=== PATIENT | male | born 1950 | race Caucasian/White ===

== ENCOUNTER 2018-04-24 16:46 | Emergency (ER) | payer MEDICARE ==
[~2018-04-24] VITALS: Ht 180.3 cm; Wt 100.0 kg
[~2018-04-24 16:46] MED LIST: ADVAIR DISK2 IN; ADVAIR DISK2 INH; ADVAIR DISKU IN; ALBUTERO1 IN; AMBIEN10 MG PO; AMOXICILLIN500 MG OR; BENAZEPRIL10 MG OR; BENAZEPRIL10 MG PO; CEPHALEXIN500 MG PO; CHANTIX OR; CHANTIX STARTIN0.5 & OR; COMBIVENT IN; DALIRESP500 MCG PO; DUONEB IN; E400400 UNIT OR; EFFEXOR XR75 MG PO; EFFEXOR25 MG OR; FIORICET PO; FISH OIL1000 M1 PO; FLAX OIL OR; FLUOCINONIDE0.051 EX; FLURBIPROFEN100 MG PO; GREEN OR; KEFLEX500 M1 PO; KLONOPIN0.5 MG PO; LASIX 20 MG20 MG/TAB PO; LEVAQUIN750 MG PO; LEVOXYL50 MCG PO; LEXAPRO10 MG OR; LEXAPRO20 MG PO; LIPITOR20 MG OR; LIPITOR20 MG PO; LORTAB 10 OR; LOTENSIN HCT1 TA2 PO; LUNESTA2 M2 PO; LUNESTA3 MG PO; MEDDOSEPAK OR; MEDDOSEPAK PO; METHOCARBAMOL500 MG PO; MULT VITAMI1 PO; NASONEX50 MCG/AC; NO MEDS; PREDNISODT10 PO; PROAIR HFA IN; PROVENTIL0.083 % IN; PULMICORT180 MCG IN; RISPERDAL1 MG PO; RISPERIDONE0.5 MG PO; SOMA CPD OR; TIZANIDINE4 MG PO; TRAMADOL HCL50 MG OR; TRILEPTAL600 M1 PO; ULTRAM50 M1 PO; VENTOLIN HFA IN; VITAMIN B CO PO; ZANAFLEX4 M2 OR; ZANAFLEX4 MG PO; ZOLPIDEM10 MG PO; ZPAK OR; ZPAK PO; [UNRECOGNIZED DRUG - CODE] OR; [UNRECOGNIZED DRUG - OTHER] IV
[2018-04-24 18:00] LABS: HEMATOCRIT 41.3 % (39.0-50.0); HEMOGLOBIN 13.8 g/dl (14.0-18.0); MEAN CELL VOLUME 95.4 fL CALC (80.0-100.0); MEAN CORPUSCULAR HGB 31.9 pG CALC (26.0-32.0); MEAN CORPUSCULAR HGB CONC 33.4 g/L CALC (32.0-36.0); NEUT# 21.74 thou/uL (1.82-7.42); RED BLOOD COUNT 4.33 mill/uL (4.70-6.10); RED CELL DISTRI WIDTH 14.8 % (11.5-15.5)
[2018-04-24 18:15] LABS: ALBUMIN 3.9 g/dL (3.2-5.0); ALKALINE PHOSPHATASE 81 u/l (38-126); BILIRUBIN, TOTAL 0.6 mg/dL (0.0-1.4); BUN 15 mg/dL (8-23); BUN/CREATININE RATIO 17 (12-20 (CALC)); CARBON DIOXIDE 23 mmol/l (22-30); CHLORIDE 97 mmol/l (95-108); CREATININE 0.9 mg/dL (0.7-1.3); GFR > 60 ML/MIN (>=60 (CALC)); GFR FOR AFR.AMER. > 60 ML/MIN (>=60 (CALC)); SGOT/AST 30 u/l (19-48); SGPT/ALT 48 u/l (11-66); TOTAL PROTEIN 6.9 g/dL (6.3-8.2)
[2018-04-24 18:18] LABS: ANION GAP 16 (6-22 (CALC)); POTASSIUM 4.8 mmol/l (3.5-5.1); SODIUM 131 mmol/l (137-146)
[2018-04-24 18:26] LABS: MYOGLOBIN 38 ng/mL (0 - 121)
[2018-04-24] MEDS ORDERED: DOXYCYCL HYC100 MG PO (19:08)
[2018-04-24] MEDS ORDERED: PREDNISONE10 MG PO (19:08)
[2018-04-24 19:15] VITALS: BP 106/70
== END 2018-04-24 19:15 | disposition home or self-care (01) ==
LOC: ED 16:46
PROVIDERS: Emergency Medicine
DX: J44.1 Chronic obstructive pulmonary disease with (acute) exacerbation (principal); J44.0 Chronic obstructive pulmonary disease with (acute) lower respiratory infection; J20.9 Acute bronchitis, unspecified; I10 Essential (primary) hypertension; R06.02 Shortness of breath
CPT/HCPCS: J3475

== ENCOUNTER 2018-12-20 20:43 | Emergency (ER) | payer MEDICARE ==
[~2018-12-20] VITALS: Ht 180.3 cm; Wt 110.0 kg
[~2018-12-20 20:43] MED LIST changes: +DOXYCYCL HYC100 MG PO; +PREDNISONE10 MG PO
[2018-12-20 21:43] VITALS: BP 119/92
== END 2018-12-20 21:49 | disposition home or self-care (01) ==
LOC: ED 20:43
PROC: 0HQDXZZ Repair Right Lower Arm Skin, External Approach (ICD-10-PCS; principal; 2018-12-20)
DX: S51.811A Laceration without foreign body of right forearm, initial encounter (principal); I10 Essential (primary) hypertension; J44.9 Chronic obstructive pulmonary disease, unspecified; M19.90 Unspecified osteoarthritis, unspecified site; W01.110A Fall on same level from slipping, tripping and stumbling with subsequent striking against sharp glass, initial encounter; Y92.009 Unspecified place in unspecified non-institutional (private) residence as the place of occurrence of the external cause

== ENCOUNTER 2018-12-30 07:53 | Emergency (ER) | payer MEDICARE ==
[~2018-12-30] VITALS: Ht 180.3 cm; Wt 100.0 kg
[2018-12-30 08:10] VITALS: BP 139/80
== END 2018-12-30 08:10 | disposition home or self-care (01) ==
LOC: ED 07:53
DX: S51.811D Laceration without foreign body of right forearm, subsequent encounter (principal); X58.XXXD Exposure to other specified factors, subsequent encounter; M19.90 Unspecified osteoarthritis, unspecified site; I10 Essential (primary) hypertension; J44.9 Chronic obstructive pulmonary disease, unspecified

== ENCOUNTER 2021-06-26 09:01 | Emergency (ER) | payer MEDICARE ==
[2021-06-26 10:01] LABS: IMMATURE GRANULOCYTES 0.2 % (0.0-5.0); MEAN CORPUSCULAR HGB 27.3 pG CALC (26.0-32.0); MEAN CORPUSCULAR HGB CONC 31.4 g/dL CAL (32.0-36.0); NEUT# 3.74 thou/uL (1.82-7.42); RED BLOOD COUNT 2.38 mill/uL (4.70-6.10); RED CELL DISTRI WIDTH 16.6 % (11.5-15.5)
[2021-06-26 10:11] LABS: ALBUMIN 3.8 g/dL (3.2-5.0); ALKALINE PHOSPHATASE 96 u/l (38-126); BUN 5 mg/dL (8-23); BUN/CREATININE RATIO 7 (12-20 (CALC)); CARBON DIOXIDE 27 mmol/l (22-30); CHLORIDE 97 mmol/l (95-108); CREATININE 0.7 mg/dL (0.7-1.3); GFR > 60 ML/MIN (>=60 (CALC)); GFR FOR AFR.AMER. > 60 ML/MIN (>=60 (CALC)); SGOT/AST 41 u/l (19-48); SODIUM 130 mmol/l (137-146); TOTAL PROTEIN 7.6 g/dL (6.3-8.2)
[2021-06-26 10:14] LABS: HEMATOCRIT 20.7 % (39.0-50.0); HEMOGLOBIN 6.5 g/dl (14.0-18.0)
[2021-06-26 10:15] LABS: ANION GAP 10 (6-22 (CALC)); BILIRUBIN, TOTAL 0.1 mg/dL (0.0-1.4); POTASSIUM 3.5 mmol/l (3.5-5.1)
[2021-06-26 10:22] LABS: PROTHROMBIN TIME 10.5 SECONDS (9.0-12.5)
[2021-06-26 10:36] LABS: URINE BILIRUBIN - DIPSTICK NEGATIVE (NEGATIVE); URINE BLOOD DIPSTICK NEGATIVE (NEGATIVE); URINE COLOR YELLOW; URINE GLUCOSE - DIPSTICK NEGATIVE (NEGATIVE); URINE KETONE NEGATIVE (NEGATIVE); URINE LEUK ESTERASE NEGATIVE (NEGATIVE); URINE PROTEIN - DIPSTICK NEGATIVE (NEG-TRACE); URINE SPECIFIC GRAVITY <=1.005; URINE UROBILINOGEN - DIPSTICK 0.2 E.U./dL (0.2)
[2021-06-26 10:37] LABS: URINE NITRITE - DIPSTICK NEGATIVE (Negative)
[2021-06-26 11:26] VITALS: BP 120/72
[2021-06-26 11:45] VITALS: BP 124/78
[2021-06-26 13:30] VITALS: BP 139/69
[2021-06-26 23:23] VITALS: BP 139/69
== END 2021-06-26 15:35 | disposition home or self-care (01) ==
LOC: ED 09:01
PROVIDERS: Family Medicine
PROC: 30233N1 Transfusion of Nonautologous Red Blood Cells into Peripheral Vein, Percutaneous Approach (ICD-10-PCS; principal; 2021-06-26)
DX: D64.9 Anemia, unspecified (principal); I10 Essential (primary) hypertension; J44.9 Chronic obstructive pulmonary disease, unspecified
CPT/HCPCS: P9016

== ENCOUNTER 2021-11-10 14:11 | Emergency (ER) | payer MEDICARE ==
[~2021-11-10] VITALS: Ht 180.3 cm; Wt 110.0 kg
[2021-11-10 14:11] VITALS: BP 190/100
[2021-11-10 14:59] LABS: IMMATURE GRANULOCYTES 0.4 % (0.0-5.0); MEAN CORPUSCULAR HGB 26.4 pG CALC (26.0-32.0); MEAN CORPUSCULAR HGB CONC 29.7 g/dL CAL (32.0-36.0); NEUT# 4.16 thou/uL (1.82-7.42); RED BLOOD COUNT 3.63 mill/uL (4.70-6.10); RED CELL DISTRI WIDTH 19.5 % (11.5-15.5)
[2021-11-10 15:00] LABS: HEMATOCRIT 32.3 % (39.0-50.0); HEMOGLOBIN 9.6 g/dl (14.0-18.0)
[2021-11-10 15:17] LABS: ALKALINE PHOSPHATASE 107 u/l (38-126); ANION GAP 11 (6-22 (CALC)); BUN 7 mg/dL (8-23); BUN/CREATININE RATIO 11 (12-20 (CALC)); CARBON DIOXIDE 25 mmol/l (22-30); CHLORIDE 95 mmol/l (95-108); CREATININE 0.7 mg/dL (0.7-1.3); GFR > 60 ML/MIN (>=60 (CALC)); GFR FOR AFR.AMER. > 60 ML/MIN (>=60 (CALC)); POTASSIUM 3.9 mmol/l (3.5-5.1); SGOT/AST 34 u/l (19-48); SODIUM 127 mmol/l (137-146); TOTAL PROTEIN 7.7 g/dL (6.3-8.2)
[2021-11-10 15:19] LABS: BILIRUBIN, TOTAL 0.4 mg/dL (0.0-1.4)
== END 2021-11-10 15:49 | disposition left against medical advice (07) ==
LOC: ED 14:11
PROVIDERS: Family Medicine
DX: Z91.19 Patient's noncompliance with other medical treatment and regimen (principal)